=== PATIENT | female | born 1955 | race Caucasian/White ===

== ENCOUNTER 2017-09-14 19:09 | Emergency (ER) | payer MEDICAID, SELFPAY ==
[2017-09-14 19:10] VITALS: BP 158/79; PULSE 62; RESP 18; TEMP 36.6; O2SAT 98; BMI 50.0
--- NOTE | 2017-09-14 19:29 | CT_ITS ---
STUDY: CT BRAIN WITHOUT CONTRAST REASON FOR EXAM: Female, 62 years old. Posttraumatic headache and nausea RADIATION DOSAGE (If Supplied By Facility): CTDIvol = ( 44.99 ) mGy, DLP = ( 762.36 ) mGycm TECHNIQUE: Transaxial CT imaging of the brain was performed without administration of intravenous contrast material. Individualized dose optimization techniques were used for this CT. COMPARISON: None. FINDINGS: Normal soft tissue structures. Normal calvarium. Normal size ventricles and extra-axial spaces for the patient's age. Mild periventricular white matter ischemic changes. Normal basal ganglia and thalami. Normal brainstem. Normal cerebellum. Empty sella deformity of uncertain clinical significance although may be seen in association with pseudotumor cerebri. Clinical correlation recommended. There is no intracranial hemorrhage. There are no findings of an acute ischemic infarction. Postsurgical changes of the orbits. Normal visualized paranasal sinuses. CT/Brain/Head without Contrast IMPRESSION: Mild periventricular white matter ischemic changes. No evidence for acute intracranial bleed. Incidental finding of empty sella deformity of uncertain clinical significance Electronically Signed: Klever Justin MD at 19:58 EDT , Service support ,
--- NOTE | 2017-09-14 20:39 | ED.DCSUM_ITS ---
- ER Visit Summary Date of Service: 09/14/17 Chief Complaint: Headache History of Present Illness: The patient is a [address] Pina. She reports that she has pain in the left occipital region since slipping on the snow and falling approximately 1 week ago. She hit her head. She did not have a loss of consciousness. Patient describes the pain as a tingling pain is 10 out of 10 at worst and 6 out of 10 currently. Is worsened by movement or head periods relieved by lying down Tylenol. She has had nausea without vomiting. No change in her vision. No photophobia. She reports that she has pain to the left side of her neck is 6 out of 10 severity. She denies any back, shoulder, wrist, or hip pain. She is not on blood thinners. Physical Examination: Vitals: Stable. Afebrile. Neck: No vertebral tenderness. Full ROM without difficulty. Cleared by NEXUS criteria. I will tenderness palpation to the left trapezius muscle. Back: No vertebral tenderness. General: A&O x 3. NAD. Cardiovascular exam: Regular rate and rhythm, no murmur, rub or gallop. Respiratory exam: Chest nontender. No crepitus. Clear to auscultation bilaterally. No wheezes or stridor. Abdominal exam: Soft, nontender, nondistended, normal bowel sounds. No pain in RUQ or LUQ specifically. No peritoneal signs. Extremity: Atraumatic. No pain with range of motion. Test Results: CT brain shows no intracranial hemorrhage or acute disease. Emergency Department Course and Treatment: Patient refused pain medications and is resting comfortably. Treatment Plan: Patient will be discharged with instruction use Tylenol and/or ibuprofen for pain. Follow-up with her primary care physician 1 week if not improving. Disposition: To home in improved and stable condition. Impression: 1. Closed head injury. This note was generated with [employer] dictation software. It may contain incorrect words, spelling, and punctuation that were not noted in review of the chart prior to signing ED Disposition - Plan for ED Patient: Disposition: Home or Assisted Living Chief Complaint: Headache Instructions: ED Head Injury Closed Referrals: Nikko Pina MD [Primary Care Provider] - 1 Week if not improving
[2017-09-14 20:41] VITALS: RESP 18
== END 2017-09-14 20:48 | disposition home or self-care (01) ==
PROVIDERS: Emergency Provider Emergency Medicine; Family Provider Family Medicine; PCP Family Medicine
DX: S09.90XA Unspecified injury of head, initial encounter (principal); M54.2 Cervicalgia; W00.0XXA Fall on same level due to ice and snow, initial encounter; Y93.9 Activity, unspecified; Y92.9 Unspecified place or not applicable; Y99.9 Unspecified external cause status; I10 Essential (primary) hypertension; Z79.82 Long term (current) use of aspirin; Z79.899 Other long term (current) drug therapy
CPT/HCPCS: 70450; 99282

== ENCOUNTER 2017-09-17 21:20 | Emergency (ER) | payer MEDICAID, SELFPAY ==
[2017-09-17 21:21] VITALS: BP 209/76; PULSE 71; RESP 17; TEMP 37.6; O2SAT 98; BMI 48.2
--- NOTE | 2017-09-17 22:18 | ED.DCSUM_ITS ---
- ER Visit Summary Date of Service: 09/17/17 Chief Complaint: [Fever and joint pain] History of Present Illness: The patient is a 62 F [who presents the emergency department with fever and joint pain. It started this afternoon. She states her temperature was 100.7. She states she has general muscle aches in her neck back legs and arms. She has joint aches in her fingers and ankles. She denies any cough sore throat sneezing air pain abdominal pain nausea vomiting diarrhea. She states that her blood pressure has been running high. She does not know of any sick contacts but she does work as a senior procurement specialist. She has been taking her blood pressure medication.] Physical Examination: [] BP 209/76 temp 99.7 WN WD NAD overweight PERRL EOMI MMM NECK supple and nontender, no masses RRR no murmur rub or gallop, no peripheral edema, symmetric radial pulses CTAB no respiratory distress ABDOMEN is soft and nontender, normal bowel sounds, no distension, no rebound or guarding SKIN is warm and dry no rashes Alert and Oriented x3, CN II-XII in tact, no motor or sensory deficits, gait normal No lymphadenopathy Test Results: [] Emergency Department Course and Treatment: [Patient was ordered medication for her blood pressure however and improved on its own without medication. Flu and strep were negative. Patient was given fluids Toradol and Tylenol. She did mildly improve. Screening labs show white count of 13.9. Chest x-ray was unremarkable urine did not appear infected. She had a CRP of 73 and a uric acid that was high. 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 If she continues to have fever of 100.5 or higher if she gets worse in any way she will return immediately to the emergency department otherwise she will follow- up with her doctor in 2-3 days. Blood cultures were sent. She denies any wounds.] Treatment Plan: [] Disposition: Discharge [] Impression: [1. Fever 2. Polyarthralgia] This note was generated with [employer] dictation software. It may contain incorrect words, spelling, and punctuation that were not noted in review of the chart prior to signing ED Disposition - Plan for ED Patient: Chief Complaint: Fever Referrals: Nikko Pina MD [Primary Care Provider] -
[2017-09-17 22:30] VITALS: BP 148/71; PULSE 64; RESP 18; O2SAT 95
--- NOTE | 2017-09-17 22:30 | ED.RN ---
notified md of bp 148/71, asked if she wanted labetalol to be held. per md hold labetalol.
[2017-09-17] MEDS: Acetaminophen 500 MG Tablet 1000 MG PO (22:46)
[2017-09-17] MEDS: 0.9% Normal Saline 1,000 ML 1000 ML IV (22:47)
[2017-09-17] MEDS: Ketorolac 15 MG/ML Vial IV (22:47)
[2017-09-17 22:51] LABS: Mucous, Urine 0 SEEN /hpf (<or=2+); Red Blood Cells-Urine 0 SEEN /hpf (0-5)
[2017-09-17 22:57] LABS: Color, Urine Yellow (Yellow); Glucose, Dipstick Normal (Normal); Ketone-Dipstick Negative (Negative); Leukocyte Esterase-Dipstick 25 /ul (Negative); Nitrite-Dipstick Negative (Negative); Occult Blood-Urine Negative /ul (Negative); Protein-Dipstick Negative (Negative); Urine Bilirubin Dipstick Negative (Negative); Urine Clarity Sl. Cloudy (Clear); Urine Urobilinogen Normal (Normal)
[2017-09-17 23:01] LABS: Absolute Lymphocyte Count 1.53 X10^3/ul (0.83-4.51); Basophil# 0.04 X10^3/uL; Basophil% 0.3 % (0-1); Eosinophil# 0.21 X10^3/uL; Eosinophils% 1.5 % (0-5); Hematocrit 41.6 % (37-47); Hemoglobin 13.1 g/dl (12.0-15.0); Lymphocyte # 1.53 X10^3/ul (4.0); Mean Corp Hgb Conc 31.5 g/gl (32-36); Mean Corpuscular Hgb 28.5 pg (27.0-32.0); Mean Corpuscular Volume 90.6 fL (81-99); Mean Platelet Vol. 9.1 fl (6.2-12.0); Monocyte# 1.15 X10^3/uL; Monocyte% 8.3 % (0-10); Neutrophil # 10.97 X10^3/uL (2.7-7.7); Neutrophil % 78.7 % (47-70); Platelet Count 302 K/mm3 (150-450); RBC Distribution Width CV 15.3 % (11.6-14.6); RBC Distribution Width SD 50.4 fl (35.1-43.9); Red Blood Count 4.59 M/mm3 (4.2-5.4); White Blood Count 13.9 K/mm3 (4.4-11.0)
[2017-09-17 23:04] LABS: Bacteria RARE /hpf (None Seen); Squamous Epithelial Cells - UA 0-5 SEEN /hpf (5-10); White Blood Cells 0-5 SEEN /hpf (0-5)
[2017-09-17 23:04] LABS: POSITIVE COUNT NO; POSITIVE DIFFERENTIAL NO; POSITIVE MORPHOLOGY NO
[2017-09-17 23:19] LABS: AST(SGOT) 20 U/L (15-37); Alanine Aminotransfer ALT/SGPT 21 U/L (13-56); Albumin, Serum 3.9 g/dL (3.2-5.0); Alkaline Phosphatase 102 U/L (45-117); Anion Gap 8 (5-15); BUN 24 mg/dL (7-18); BUN/Creat Ratio 19.5 RATIO (10-20); Calcium,Total 8.7 mg/dL (8.5-10.1); Chloride 105 mmol/L (98-107); Creatinine, Serum 1.23 mg/dL (0.55-1.02); EST Glomerular Filtration Rate 47 mL/min (>60); Est Glom Filt Rate - Afr Amer 57 mL/min (>60); Globulin 4.1 g/dL (2.2-4.2); Glucose 101 mg/dL (74-106); Potassium 4.4 mmol/L (3.5-5.1); Sodium Level 140 mmol/L (136-145)
--- NOTE | 2017-09-17 23:30 | RAD_ITS ---
STUDY: X-RAY CHEST REASON FOR EXAM: Female, 62 years old. Fever TECHNIQUE: 2 views COMPARISON: October 04, 2016 FINDINGS: The lungs are clear and expanded. There is no demonstrated pleural abnormality. Normal size heart. Normal mediastinum and el. Normal visualized pulmonary arteries. Normal visualized aortic arch and descending thoracic aorta. Mild degenerative changes of the thoracic spine. Normal visualized ribs, clavicles, and shoulders. There is no demonstrated abnormality of the visualized soft tissue structures of the upper abdomen. RAD/Chest PA and Lateral IMPRESSION: Normal x-ray examination of the chest. No acute findings in the lungs Electronically Signed: Ernie Atkins, at 1:09 EDT Tel , Service support ,
--- NOTE | 2017-09-18 00:08 | ED.DEP ---
ED Disposition - Plan for ED Patient: Chief Complaint: Fever Instructions: ED Joint Pain, ED Fever Unconf Cause Prescriptions: Oxycodone HCl/Acetaminophen [Percocet 5/325] 1 tablet PO Q6H PRN PRN 3 Days #10 tablet PRN Reason: Pain Referrals: Nikko Pina MD [Primary Care Provider] - 2 Days
[2017-09-18 00:10] VITALS: BP 166/68; PULSE 62; RESP 16; O2SAT 95
[2017-09-18 00:47] VITALS: BP 155/75; PULSE 64; RESP 18; TEMP 36.7; O2SAT 95
== END 2017-09-18 00:47 | disposition home or self-care (01) ==
PROVIDERS: Emergency Provider Emergency Medicine; Family Provider Family Medicine; PCP Family Medicine
DX: R50.9 Fever, unspecified (principal); M25.50 Pain in unspecified joint; I10 Essential (primary) hypertension; E66.9 Obesity, unspecified; Z79.82 Long term (current) use of aspirin; Z79.899 Other long term (current) drug therapy; Z86.73 Personal history of transient ischemic attack (TIA), and cerebral infarction without residual deficits
CPT/HCPCS: 36415; 71046; 80053; 81001; 84550; 85025; 86140; 87040; 87804; 87880; 96361; 96374; 99284; J7030

== ENCOUNTER 2018-01-23 12:07 | Emergency (ER) | payer MEDICAID, SELFPAY ==
[2018-01-23 12:08] VITALS: BP 166/73; PULSE 60; RESP 18; TEMP 37; O2SAT 98; BMI 49.8
--- NOTE | 2018-01-23 12:32 | ED.VISSUMM ---
- ER Visit Summary Date of Service: 01/23/18 Chief Complaint: [] Exposure to bed bug mist bomb nausea head pressure History of Present Illness: The patient is a 62 F [] many medical problems and hypertension CAD all of which are stable she indicates she has has nausea and a sense of head pressure that she believes is related to fact that she used what she describes as bed bug missed bombs in her home the other day she was wearing 2 masks to avoid exposure and breathing in this chemical missed, however she did inhale some of it and she immediately felt a sense of nausea and had pressure, she has since had to go back into the house and remove the devices that let the missed out, was exposed again during this, and now she is aerated the house but still feels a sense of nausea and pressure when she is around this area of her house She presents complaining of a pressure to the back of her head nausea she believes it is related to all the above but she is not prone to these symptoms, she just denies describing this is a headache she has no history of seizure stroke brain tumor or brain aneurysm, she has no change in vision no change in function no chest pain abdominal pain numbness weakness or paresthesias in fact her function ability has been the same She also reports that since she has been away from the home her symptoms including the nausea and the pressure have improved Physical Examination: [] Is resting comfortably in the bed in no distress her current blood pressure is 160/80 she states that is baseline for her she takes her hand and she draws it to the occipital area of her head complaining with sense of pressure here at times the head exam is unremarkable the HEENT exam is normal the nose and throat exam normal neck is very supple lungs are clear heart tones are normal abdomen soft nontender upper lower extremities unremarkable she is a very short woman with a BMI of about 50 she is able to stand and walk without difficulty her cranial nerves motor sensory cerebellar gait exam are all normal Test Results: [] Emergency Department Course and Treatment: [] Patient is concerned because of this exposure I explained that there is really no antidote to the above there is no signs at this time of stroke seizure or life-threatening [employer]EL[employer] brain abnormality but if she was concerned we could obtain a head CT and other workup, she declined that she insists she is feeling better after being away from the house, as a precaution of asked to continue to air out her house, to avoid being in the home for the next 24 hours to follow with her family physicians and primary care providers tomorrow and return for change in symptoms and she agrees with this plan Treatment Plan: [] Disposition: [] Home stable Impression: [] Nausea head pressure possibly related to exposure as above This note was generated with [employer] dictation software. It may contain incorrect words, spelling, and punctuation that were not noted in review of the chart prior to signing ED Disposition - Plan for ED Patient: Chief Complaint: Other, Pain/Inj Referrals: Nikko Pina MD [Primary Care Provider] -
--- NOTE | 2018-01-23 12:36 | ED.DEP ---
ED Disposition - Plan for ED Patient: Chief Complaint: Other, Pain/Inj Instructions: ED Chemical Exp Skin, ED Inhalation Chemical Referrals: Nikko Pina MD [Primary Care Provider] -
[2018-01-23 12:42] VITALS: BP 154/70; PULSE 75; RESP 14; O2SAT 98
== END 2018-01-23 12:44 | disposition home or self-care (01) ==
PROVIDERS: Emergency Provider Emergency Medicine; Family Provider Family Medicine; PCP Family Medicine
DX: R51 Headache (principal); Z77.098 Contact with and (suspected) exposure to other hazardous, chiefly nonmedicinal, chemicals; R11.0 Nausea; I11.0 Hypertensive heart disease with heart failure; I50.9 Heart failure, unspecified; I25.10 Atherosclerotic heart disease of native coronary artery without angina pectoris; E66.9 Obesity, unspecified; Z79.82 Long term (current) use of aspirin; Z79.899 Other long term (current) drug therapy
CPT/HCPCS: 99282

== ENCOUNTER 2021-09-28 19:15 | Emergency (ER) | payer MEDICARE, MEDICAID, SELFPAY ==
[2021-09-28 19:16] VITALS: BP 194/74; PULSE 77; RESP 16; TEMP 36.4; O2SAT 99; BMI 41.9
--- NOTE | 2021-09-28 19:25 | RAD_ITS ---
STUDY: X-RAY - RIGHT SHOULDER REASON FOR EXAM: Female, 66 years old. was taking a shower and felt her right shoulder pop TECHNIQUE: 2 view(s) of the shoulder. COMPARISON: None. FINDINGS: There is severe degenerative arthrosis of the glenohumeral articulation. There is degenerative arthrosis of the acromioclavicular joint without inferior osseous spur formation. Normal acromion. Normal humeral head and visualized proximal humerus. The soft tissue structures are unremarkable. Normal visualized pulmonary apex. RAD/Shoulder min 2 Views IMPRESSION: Degenerative changes. No fracture or malalignment. Electronically Signed: Quinn Desai MD ([place]) at 19:58 EDT ,
--- NOTE | 2021-09-28 19:29 | EX.ED.UPPERE ---
HPI History of Present Illness Chief Complaint: Upper Extremity Injury Informant: patient Narrative Narrative: 66-year-old female presenting to the emergency room with right shoulder injury. Patient was states that she was in the shower when she felt a pop and believes that she may have dislocated her shoulder. This is happened in the past. She has not had anything to eat recently. She had some sweet tea a couple hours ago. The patient denies any other injuries. [facility] Medical History (Updated 09/28/21 @ 20:[address] Hank Bowser DO) CAD (coronary artery disease) Hypertension Hypertensive urgency Morbid obesity Home Medications acetaminophen 500 mg PO Q4H PRN PRN 02/09/15 [History Last Taken Unknown] meloxicam [Mobic] 15 mg PO DAILY 02/09/15 [History Last Taken 02/06/16] amlodipine 10 mg PO DAILY #30 tablet 02/14/15 [Rx Last Taken 02/06/16] aspirin 81 mg PO DAILY@0800 #30 tablet 02/14/15 [Rx Last Taken 02/06/16] atorvastatin 10 mg PO QHS #30 tablet 02/14/15 [Rx Last Taken 02/05/16] isosorbide mononitrate 30 mg PO DAILY #30 tablet 02/14/15 [Rx Last Taken 02/06/16] nitroglycerin 0.4 mg SUBLINGUAL Q5M PRN #30 tablet 02/14/15 [Rx Last Taken 02/06/16] hydrochlorothiazide 25 mg PO DAILY #30 tablet 02/07/16 [Rx Last Taken 02/06/16] losartan 50 mg PO DAILY 09/23/16 [History Last Taken Unknown] Ketorolac Tromethamine [Acular] 1 drp OPHTHALMIC (EYE) 4X/DAY 10/04/16 [History Last Taken Unknown] citalopram 10 mg PO DAILY 10/04/16 [History Last Taken Unknown] hydralazine 25 mg PO BID 10/04/16 [History Last Taken Unknown] Allergy/AdvReac Type Severity Reaction Status Date / Time Penicillins [PCN] Allergy Hives Verified 09/28/21 19:18 Social History (Updated 09/28/21 @ 19:[address] Hank Bowser DO) current gender identity: female Smoking Status: Former smoker ROS ROS ED Constitutional Constitutional ED: Denies chills, fever(s) or weight loss Eyes Eyes: Denies change in vision or diplopia ENT ENT ED: Denies ear pain, rhinorrhea or sore throat Cardiovascular Cardiovascular: Denies chest pain, orthopnea, palpitations or racing heartbeat Respiratory/Chest Respiratory/Chest: Denies cough, dyspnea or orthopnea Gastrointestinal Gastrointestinal: Denies abdominal pain, diarrhea, nausea or vomiting Genitourinary Genitourinary ED: Denies dysuria, hematuria or urinary frequency Musculoskeletal Musculoskeletal: Reports other Details: Shoulder pain ; Denies arthralgias or myalgias Integumentary Denies abscess or rash Neurologic Neurologic: Denies headache(s) or weakness Psychiatric Psychiatric: Denies anxiety, depression, suicidal ideation or suicidal thoughts Endocrine Endocrinology: Denies polydipsia, polyphagia or polyuria Allergic/Immunologic Allergic/Immunologic ED: Denies mouth swelling, tongue swelling or urticaria EXAM Physical Exam Const Vital Signs: 09/28/21 19:16 Temperature 97.6 F L Temperature Source Temporal Pulse Rate 77 Respiratory Rate 16 Blood Pressure 194/74 H Blood Pressure Mean 114 Pulse Ox 99 Oxygen Delivery Method Room Air Positive well nourished, well developed and obese General Appearance ED: well developed Nutritional Appearance: obese HEENT Reports normocephalic, head/scalp atraumatic and moist mucous membranes normocephalic and atraumatic Eyes PERRL and EOMs intact bilaterally Neck no lymphadenopathy, supple and no JVD Resp normal respiratory effort and clear to auscultation bilaterally Cardio regular rate, regular rhythm and no murmurs GI normal to inspection, nondistended, normoactive bowel sounds and non-tender Palpation: soft Back/Spine no CVA tenderness and normal ROM Extremity Extremity Narrative: Limited range of motion of the right shoulder. Neurovascularly is intact distal. I do not palpate an obvious dislocation. General Extremety ED: Negative for edema General Extremity: Negative for edema Neuro oriented x3 and CN's II-XII intact bilaterally Sensorium / Orientation: alert Motor Exam: strength 5/5 throughout Psych mental status grossly normal Mood & Affect: Negative for depressed or tearful Skin no rashes or lesions noted and no wounds MDM MDM MDM Narrative Medical decision making narrative: My interpretation of the plain films is no obvious fracture or dislocation. CT of the shoulder was obtained which is read as no fracture but severe degeneration. Patient received morphine for pain. She will be discharged home instructions to follow-up with orthopedics she would like to follow-up with [facility] in [place] to discuss possible shoulder replacement. Discharge Plan Triage Chief Complaint: Upper Extremity Injury ED Provider: Hank Bowser Dx/Rx/DC Orders Clinical Impression: Acute shoulder pain, Arthrosis of shoulder Instructions: ED Shoulder Pain, Uncertain Cause Prescriptions: No Action meloxicam [Mobic] 15 MG tablet 15 mg PO DAILY RF: 0 acetaminophen 500 MG tablet 500 mg PO Q4H PRN PRN (Reason: ACHES) RF: 0 atorvastatin 20 MG tablet 10 mg PO QHS Qty: 30 RF: 0 isosorbide mononitrate 30 MG tablet 30 mg PO DAILY Qty: 30 RF: 0 aspirin 81 MG tablet 81 mg PO DAILY@0800 Qty: 30 RF: 0 amlodipine 10 MG tablet 10 mg PO DAILY Qty: 30 RF: 0 nitroglycerin 0.4 MG tablet 0.4 mg sublingual Q5M PRN (Reason: Angina pain ) Qty: 30 RF: 0 hydrochlorothiazide 25 MG tablet 25 mg PO DAILY Qty: 30 RF: 0 losartan 100 MG tablet 50 mg PO DAILY RF: 0 citalopram 10 MG tablet 10 mg PO DAILY RF: 0 Ketorolac Tromethamine [Acular] 1 DROP Drops 1 drp ophthalmic (eye) 4X/DAY RF: 0 hydralazine 25 MG tablet 25 mg PO BID RF: 0 Primary Care Provider: Nikko Pina Referrals: Nikko Pina MD [Primary Care Provider] - Activity Restrictions/Additional Instructions: The phone number for the [facility] orthopedic Center is [phone] Disposition Disposition: Home, Self Care
--- NOTE | 2021-09-28 19:40 | CT_ITS ---
EXAM: CT RIGHT UPPER EXTREMITY WITHOUT INTRAVENOUS CONTRAST CLINICAL INDICATION: shoulder injury RIGHT SHOULDER PAIN, FELT POP TECHNIQUE: Helically acquired images were obtained of the right upper extremity without intravenous contrast. 2-D reformats were performed by the technologist. This CT exam was performed using one or more of the following dose reduction techniques: automated exposure control, adjustment of the mA and/or kV according to patient size, and/or use of iterative reconstruction technique. This report was created using [employer] report generation technology. RADIATION DOSE: CTDIvol = 36.61 mGy, DLP = 770.85 mGy-cm COMPARISON: None. FINDINGS: BONES/JOINTS: Severe arthrosis of the glenohumeral and acromioclavicular joints with marginal spur formation and subchondral cysts. Cephalad migration of the humeral head likely represents chronic rotator cuff pathology. No acute fracture. No subluxation. Normal alignment. No suspicious sclerotic or destructive changes. SOFT TISSUES: Unremarkable. No soft tissue swelling or gas. No radiopaque foreign body. TUBES, LINES AND DEVICES: Cardiac conduction device partially visualized. CT/Extremity Upper without Contra IMPRESSION: No demonstrated fracture or malalignment. Degenerative changes, as above. Electronically Signed: Quinn Desai MD ([place]) at 20:08 EDT Reading Location ID and State: [facility] / MD , Service support ,
[2021-09-28] MEDS: Ondansetron 4 MG/2 ML Vial IV (20:04)
[2021-09-28] MEDS: Morphine 4 MG/ML Syringe IV (20:04)
== END 2021-09-28 20:44 | disposition home or self-care (01) ==
PROVIDERS: Emergency Provider Emergency Medicine; PCP Family Medicine; Visit Provider Emergency Medicine
DX: M19.011 Primary osteoarthritis, right shoulder (principal); E66.01 Morbid (severe) obesity due to excess calories; I10 Essential (primary) hypertension; I25.10 Atherosclerotic heart disease of native coronary artery without angina pectoris; Z79.82 Long term (current) use of aspirin; Z79.1 Long term (current) use of non-steroidal anti-inflammatories (NSAID); Z79.899 Other long term (current) drug therapy; Z87.891 Personal history of nicotine dependence
CPT/HCPCS: 73030; 73200; 96374; 96375; 99282; J2405